=== PATIENT | male | born 1985 | race Hispanic/Latino ===

== ENCOUNTER 2017-09-04 15:13 | Inpatient (IN) | payer MEDICAID, OTHER ==
[2017-09-04 15:49] VITALS: BMI 17.8
[2017-09-04 16:33] LABS: RBC URINE 31 /hpf (0-3); URINE BILIRUBIN NEGATIVE (NEGATIVE); URINE COLOR Yellow (YELLOW); URINE GLUCOSE (UA) NORMAL (Normal); URINE KETONE NEGATIVE (NEGATIVE); URINE LEUKOCYTE ESTERASE NEG Leu/uL (Negative); URINE PROTEIN NEGATIVE (NEGATIVE); URINE UROBILINOGEN NORMAL mg/dL (0.2-1.0); WBC URINE 1 /hpf (0-5)
[2017-09-04 16:36] LABS: URINE BACTERIA RARE (<OCC)
[2017-09-04 16:36] LABS: BASO # 0.1 K/uL (0.0-0.2); EOS # 0.1 K/uL (0.0-0.7); EOS % 0.9 % (0.0-4.0); HEMATOCRIT 37.6 % (35.0-51.0); LYMPH % 26.7 % (20.0-40.0); MEAN CELL VOLUME 89.6 fL (80.0-94.0); MEAN CORPUSCULAR HEMOGLOBIN 30.6 pg (27.0-31.0); MEAN CORPUSCULAR HGB CONC 34.2 g/dL (33.0-37.0); MEAN PLATELET VOLUME 7.4 fL (7.2-11.7); MONO # 0.6 K/uL (0.0-0.8); MONO % 8.4 % (0.0-10.0); RED CELL DISTRIBUTION WIDTH 14.2 % (11.5-14.5); WHITE BLOOD COUNT 7.4 K/uL (4.8-10.8)
[2017-09-04 16:38] LABS: URINE BLOOD 3+ (NEGATIVE)
[2017-09-04 16:47] LABS: CHLORIDE 98 mmol/L (98-107); SODIUM 135 mmol/L (132-148)
[2017-09-04 16:48] LABS: POTASSIUM 4.4 mmol/L (3.6-5.2)
[2017-09-04 16:50] LABS: ALB/GLOB RATIO 1.7 (1.0-2.1); ALKALINE PHOSPHATASE 82 U/L (38-126); ALT/SGPT 37 U/L (21-72); AST/SGOT 21 U/L (17-59); BILIRUBIN,TOTAL 0.4 mg/dL (0.2-1.3); BLOOD UREA NITROGEN 19 mg/dL (9-20); CALCIUM 9.3 mg/dl (8.6-10.4); CARBON DIOXIDE 27 mmol/L (22-30); GFR AFRICAN-AMERICAN > 60; GLUCOSE,RANDOM 86 mg/dL (75-110); TOTAL PROTEIN 7.3 g/dL (6.3-8.3)
[2017-09-04 16:51] LABS: ALCOHOL SERUM < 10 mg/dl (0-10)
--- NOTE | 2017-09-04 18:08 | C.PDOC ---
History Of Present Illness 31 year old male, with no significant past medical history, presents to the ED as a pre-screen for detox from heroin. Patient notes use via IV and last use was today. He reports he feels anxious and denies physical complaints, suicidal , or homicidal ideations. Time Seen by Provider: 09/04/17 16:05 Chief Complaint (Nursing): Substance Abuse History Per: Patient History/Exam Limitations: no limitations Suicide/Self Injury Attempted (Context): None Modifying Factor(s): Narcotics (heroin ) Pain Scale Rating Of: 0 Associated Symptoms: Anxiety. denies: Suicidal Thoughts, Suicidal Plan Involuntary Hold By: None Recent travel outside of the [place]: No Past Medical History Reviewed: Historical Data, Nursing Documentation, Vital Signs Vital Signs: Last Vital Signs Temp 98 F 09/04/17 18:10 Pulse 69 09/04/17 18:10 Resp 16 09/04/17 18:10 BP 122/65 09/04/17 18:10 Pulse Ox 100 09/04/17 18:43 Family History: States: Unknown Family Hx - Social History Hx Alcohol Use: No Hx Substance Use: Yes - Immunization History Hx Tetanus Toxoid Vaccination: Yes Hx Influenza Vaccination: No Hx Pneumococcal Vaccination: No Review Of Systems Constitutional: Negative for: Fever Cardiovascular: Negative for: Chest Pain Respiratory: Negative for: Shortness of Breath Gastrointestinal: Negative for: Nausea, Vomiting, Abdominal Pain, Diarrhea Psych: Positive for: Anxiety. Negative for: Suicidal ideation Physical Exam - Physical Exam Appears: Non-toxic, No Acute Distress Skin: Warm, Dry Head: Atraumatic, Normacephalic Eye(s): bilateral: Normal Inspection, PERRL, EOMI Oral Mucosa: Moist Neck: Supple Chest: Symmetrical, No Deformity Cardiovascular: Rhythm Regular, No Murmur Respiratory: No Rales, No Rhonchi, No Wheezing, Other (clear to auscultation bilaterally ) Gastrointestinal/Abdominal: Soft, No Tenderness, No Distention, No Guarding, No Rebound Extremity: Normal ROM, No Tenderness, Capillary Refill (good capillary refill, less than two seconds ), No Deformity, No Swelling, Other (Track brooke to bilateral upper extremities. No redness or swelling. ) Neurological/Psych: Oriented x3, Normal Speech, Normal Cognition, Normal Cranial Nerves, No Cerebellar Signs, Normal Motor, Normal Sensation ED Course And Treatment - Laboratory Results Result Diagrams: 09/04/17 16:33 09/04/17 16:33 O2 Sat by Pulse Oximetry: 100 (RA) Progress Note: Labs were ordered and patient was given Ativan. Upon evaluation of labs, hematuria was noted. Patient denies discomfort, dysuria, urinary frequency, back pain, abdominal pain, or penile discharge. Patient instructed to follow up with urologist outpt to have repeat UA to ensure resolution of hematuria. Case discussed and patient evaluated by shine worker who discussed case with Dr. Solomon. Dr. Solomon agrees on admission. Disposition - Disposition Disposition: HOSPITALIZED Disposition Time: 19:00 Condition: STABLE - Clinical Impression Clinical Impression: Opioid dependence, Hematuria - PA / GAME PROGRAMER / Resident Statement MD/DO has reviewed & agrees with the documentation as recorded. - Scribe Statement The provider has reviewed the documentation as recorded by the Scribfarzad Gage All medical record entries made by the Medina were at my direction and personally dictated by me. I have reviewed the chart and agree that the record accurately reflects my personal performance of the history, physical exam, medical decision making, and the department course for this patient. I have also personally directed, reviewed, and agree with the discharge instructions and disposition.
--- NOTE | 2017-09-04 18:11 | PCM.BM ---
<Beata Quinteros - Last Filed: 09/04/17 18:09> Treatment Plan Problems - Problems identified on initial assessmt potiential for opiate withdrawal Date Initiated: 09/04/17 Time Initiated: 18:10 Assessment reference: NA Status: Active Treatment assets and liabiliti Patient Assests: cooperative, ADL independent, physically healthy Patient Liabilities: substance abuse - Milieu Protocol Maintain good personal hygiene: daily Encourage regular showers, daily Remind patient to perform daily oral care, daily Assist patient to perform ADL's Maintain personal safety: every shift Educate patient to report safety concerns to staff, every shift Monitor environment for contraband/sharps Medication safety: Monitor for expected outcome, potential side effects: every shift, Assess barriers to learning: every shift, Assess readiness for medication education: every shift <Bruno Smith - Last Filed: 09/07/17 22:35> - Diagnosis (1) Opioid dependence Status: Acute Interventions: 09/07/17 22:34 * Assess 7x/week regarding severity of withdrawal * Educate regarding risks, benefits, side effects and alternatives of medications * Use Motivational Interviewing for abstinence * Use CBT for relapse prevention * Medication management for withdrawal symptoms * Encourage medication assisted treatment *
[2017-09-04] MEDS ORDERED: Buprenorphine Hydrochloride 2 mg SL ONE ×2 (21:34→22:46)
[2017-09-05] MEDS ORDERED: Buprenorphine Hydrochloride 2 mg SL ONE (16:15)
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
[2017-09-06] MEDS ORDERED: Pneumococcal 23-Valent Vaccine IM ONE (09:00)
[2017-09-06] MEDS ORDERED: Buprenorphine Hydrochloride 2 mg SL ONE (10:00)
[2017-09-06 14:19] VITALS: RESP 18
--- NOTE | 2017-09-06 14:57 | PCM.PYCHPN ---
Psychiatric Progress Note - Psychiatric Progress Note Patient seen today, length of contact: 16 minutes Patient Chief Complaint: "I'm feeling better" Problems Identified/Issues Discussed: This is a 31 yo male with Opioid use disorder, tobacco dependence, stated that he is feeling better. He stated that he had regrets about smoking cigarette in the hospital. He stated that he is thankful for having a chance to change his life. He stated that Subutex is helping him in withdrawal symptoms. He reported that he is compliant with medication and he did not reported side effects. He reported that his mood is "Fine" and he slept well last night. Pt reported that he his Right toes were hurt couple of days ago. Diagnostic Results: no new labs DSM 5 Symptoms Update: Opioid use disorder, severe, dependence, withdrawal tobacco use d/o severe Medication Change: Yes (Subutex taper, Nicotine SC patch dose decrease to 7mg Q24 hour) Medical Record Reviewed: Yes Mental Status Examination - Cognitive Function Orientation: Person, Place, Situation, Time Memory: Intact Attention: WNL Concentration: WNL Association: WNL Fund of Knowledge: [facility] Decription of patient's judgement and insights: FAIR/FAIR - Mood Mood: Neutral - Affect Affect: Constricted - Speech Speech: Appropriate - Formal Thought Process Formal Thought Process: No Impairment, Other (denied) Psychotic Thoughts and Behaviors: Denied - Suicidal Ideation Suicidal Ideation: No - Homicidal Ideation Homicidal Ideation: No Goal/Treatment Plan - Goal/Treatment Plan Progress Toward Problem(s) and Goals/Treatment Plan: Subetex taper Gabapentin for augmentation Start Nicotine 7 mg SC patch As needed meds and vitamins Attend groups and activities OR for abstinence and CBT for relapse prevention Support and psychoeducation Consider and encourage MAT offered Podiatry consult for pain in toes, but pt declined and stated that he had mild pain and on observation there was no swelling or redness or change in discoloration. Estimated Date of D/C: 09/07/17 - Smoking Cessation Smoking Cessation Initiated: Yes
--- NOTE | 2017-09-07 09:54 | PCM.PYCHDC ---
Mental Status Examination - Mental Status Examination Orientation: Person, Place, Situation, Time Memory: Impaired Mood: Anxious Affect: Constricted Speech: Appropriate Attention: WNL Concentration: WNL Association: WNL Fund of Knowledge: WNL Formal Thought Process: No Impairment Suicidal Ideation: No Current Homicidal Ideation?: No Discharge Summary - Discharge Note Reason for Hospitalization: Heroin detox Consultations:: List each consultation separately and include: 1. Reason for request. 2. Findings. 3. Follow-up Summary of Hospital Course include:: 1. Description of specific treatment plan utilized for patients during their course of treatmen. 2. Summarize the time- course for resolution of acute symptoms and/or regressed behaviors. 3. Describe issues identified and worked on during hospitalization. 4. Describe medication utilized. 5. Describe medical problems identified and treated. 6. Reassessment of suicide risk Summary of Hospital Course: She is seen, chart reviewed and case discussed. The pt was admitted and started on treatment with psychotherapy, support, psychoeducation and medications. SC and CBT used. The pt attended groups and activities, as well as milieu therapy. All the risks and benefits of medications are discussed and the patient understood and agreed. The pt improved with the treatments provided. After care discussed with the patient. He asked to leave today, rather than yesterday. Will consider [facility] - Final Diagnosis (DSM 5) Condition upon Discharge: STABLE DSM 5: Opioid use disorder, severe, dependence, withdrawal tobacco use d/o severe Disposition: HOME/ ROUTINE Follow-up Treatment Plan: He did not want meds Follow after care plan as discussed. Use relapse prevention skills Return to ER or call 911 if suicidal, homicidal or symptoms relapse. Stay away from stress, alcohol and drugs. See primary doctor regularly and get labs.
[2017-09-07] MEDS ORDERED: Buprenorphine Hydrochloride 2 mg SL ONE (10:00)
[2017-09-07 10:23] VITALS: BP 115/79; PULSE 102; TEMP 97.6; O2SAT 98
== END 2017-09-07 10:00 | disposition home or self-care (01) | DRG 745 ==
LOC: C.ER 15:13 → C.7D 17:40
PROVIDERS: ADMIT Psychiatry & Neurology Psychiatry; ATTEND Psychiatry & Neurology Psychiatry
PROC: HZ52ZZZ Individual Psychotherapy for Substance Abuse Treatment, Cognitive-Behavioral (ICD-10-PCS; principal; 2017-09-04)
PROC: HZ2ZZZZ Detoxification Services for Substance Abuse Treatment (ICD-10-PCS; 2017-09-04)
PROC: HZ59ZZZ Individual Psychotherapy for Substance Abuse Treatment, Supportive (ICD-10-PCS; 2017-09-04)
PROC: HZ56ZZZ Individual Psychotherapy for Substance Abuse Treatment, Psychoeducation (ICD-10-PCS; 2017-09-04)
DX: F11.23 Opioid dependence with withdrawal (principal); F17.210 Nicotine dependence, cigarettes, uncomplicated; R31.9 Hematuria, unspecified